=== PATIENT | female | born 1955 | race Caucasian/White ===

== ENCOUNTER → 2017-12-10 16:30 | Outpatient (CLI) | payer OTHER, SELFPAY ==
[2017-12-15 09:04] LABS: HPV Reflexed? NOT INDICATED
== END ==
PROVIDERS: Visit Provider Obstetrics & Gynecology
DX: Z12.4 Encounter for screening for malignant neoplasm of cervix (principal)
CPT/HCPCS: 88175; G0145

== ENCOUNTER → 2018-01-16 07:00 | Outpatient (CLI) | payer OTHER, SELFPAY ==
--- NOTE | 2018-01-16 06:57 | HPBI_ITS ---
MAMMOGRAPHY - BILATERAL SCREENING REASON FOR EXAM: Female, 62 years old. Routine annual screening examination. PERTINENT HISTORY: Mother with breast cancer. TECHNIQUE: Digital bilateral breast caty (3D mammographic acquisition) in the CC and MLO projections. 2-D mediolateral oblique (MLO) and craniocaudad (CC) views of both breasts were obtained. CAD: Full Field Digital Mammography with Computer Added Detection was performed. COMPARISON: Comparison is made with prior study dated January 01, 2017 and May 18, 2015. FINDINGS: Breast Composition: The breasts are heterogeneously dense, which may obscure small masses. There are no dominant masses or suspicious calcifications. No other significant abnormalities are identified. There has been no significant change since the prior study. HPBI/SCREENING MAMM (CAD), BILAT IMPRESSION: Stable bilateral screening mammogram. Yearly follow-up mammogram recommended. (A) ASSESSMENT CATEGORY: BIRADS Category 1: Negative. A letter regarding these results will be sent to the patient by the facility within 30 days. Approximately 10% of breast cancers are not detected by mammography. A normal mammogram should not delay biopsy of a clinically suspicious abnormality. [id number] Electronically Signed: Cam Cloud MD at 8:26 EST Tel [phone], Service support ,
== END ==
PROVIDERS: Family Provider Family Medicine; PCP Family Medicine; Visit Provider Obstetrics & Gynecology
DX: Z12.31 Encounter for screening mammogram for malignant neoplasm of breast (principal)
CPT/HCPCS: 77063; 77067

== ENCOUNTER 2018-10-30 11:52 | Emergency (ER) | payer OTHER, SELFPAY ==
[2018-10-30 11:53] VITALS: BP 163/81; PULSE 92; RESP 16; TEMP 36.7; BMI 30.4
--- NOTE | 2018-10-30 12:26 | EKG12_ITS ---
Test Reason : LEFT ARM HEAVINESS Blood Pressure : / mmHG Vent. Rate : 063 BPM Atrial Rate : 063 BPM P-R Int : 152 ms QRS Dur : 106 ms QT Int : 424 ms P-R-T Axes : 076 052 056 degrees QTc Int : 433 ms Normal sinus rhythm Incomplete left bundle branch block Borderline ECG Confirmed by WESTLEY ZALDIVAR, RENNY ([id number]), manuscript editor KATHY MOON ([id number]) on 11/01/2018 1:53:29 PM Referred By: ZOEY Confirmed By:RENNY CHRISTY MD
--- NOTE | 2018-10-30 12:27 | ED.DCSUM_ITS ---
- ER Visit Summary Date of Service: 10/30/18 Chief Complaint: Left arm heaviness History of Present Illness: The patient is a 63 F with left arm pain heaviness. 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 Keyboarding causes her heaviness. She never had this before. She has not had other associated symptoms like chest pain, shortness of breath, weakness, numbness, sweats, nausea, or vomiting. No history of heart disease or angina. She thinks she might have overused her arm. She hurt her knee recently and has been pulling herself up the stairs. She normally walks up 3 flights of stairs at work and does not have any chest pain or symptoms with exertion. Physical Examination: Afebrile and vital signs unremarkable except for a blood pressure of 163/81. Nontoxic and in no acute distress. Alert and oriented. Skin appears normal without diaphoresis or pallor. Heart regular. Lungs clear. Left upper extremity shows good range of motion. Good strength and sensation. Neurovascular intact distally. No laxity or deformity. Test Results: EKG, chest x-ray, labs pending Emergency Department Course and Treatment: I suspect this is myofascial pain. She is low risk for heart disease and her symptoms are very atypical. She was concerned and her coworkers were concerned that this could be an atypical cardiac presentation. I will check EKG, chest x-ray, and labs. EKG showed a left bundle branch block pattern. No sign of acute ischemia or infarction pattern. There is nothing to suggest that this is an acute ID type pattern. Chest x-ray normal. Labs normal. She has a heart score of 3, she received one-point because of her EKG and she received 2 points because of her age. Her symptoms are very unusual and atypical for ACS or angina. I do not believe she needs admission for that. I referred her to follow-up with her family doctor for outpatient follow-up. I suspect this may be just myofascial pain. She can take anti-inflammatories and rest the arm. Follow-up with primary care. Return right away for any new or worsening issues Treatment Plan: As above Disposition: Discharge Impression: 1. Left arm heaviness This note was generated with [employer] dictation software. It may contain incorrect words, spelling, and punctuation that were not noted in review of the chart prior to signing ED Disposition - Plan for ED Patient: Disposition: Home or Assisted Living Chief Complaint: Upper Extremity Injury Instructions: ED Sprain Shoulder Referrals: Marquis Villareal MD [Primary Care Provider] -
--- NOTE | 2018-10-30 12:40 | RAD_ITS ---
STUDY: X-RAY CHEST REASON FOR EXAM: Female, 63 years old. Chest heaviness and left arm heaviness. TECHNIQUE: Single AP portable view of the chest. COMPARISON: None. FINDINGS: EKG electrodes are seen. The lungs are clear and expanded. There is no demonstrated pleural abnormality. Normal size heart. Normal mediastinum and sylvia. Normal visualized pulmonary arteries. Normal visualized aortic arch and descending thoracic aorta. There are mild degenerative changes of the visualized thoracic spine. Normal visualized ribs, clavicles, and shoulders. There is no demonstrated abnormality of the visualized soft tissue structures of the upper abdomen. RAD/Chest 1 View (Portable) IMPRESSION: Normal x-ray examination of the chest. Electronically Signed: Cam Cloud MD at 12:57 EST Tel [phone], Service support ,
[2018-10-30 13:02] LABS: Absolute Lymphocyte Count 1.18 X10^3/ul (0.83-4.51); Absolute Neutrophil Count 5.6 X10^3/uL (2.0-7.7); Basophil# 0.02 X10^3/uL; Basophil% 0.3 % (0-1); Eosinophil# 0.09 X10^3/uL; Eosinophils% 1.2 % (0-5); Hematocrit 36.5 % (37-47); Hemoglobin 12.5 g/dl (12.0-15.0); Lymphocyte # 1.18 X10^3/ul (4.0); Lymphocyte % 15.9 % (19-41); Mean Corp Hgb Conc 34.2 g/gl (32-36); Mean Corpuscular Hgb 30.8 pg (27.0-32.0); Mean Corpuscular Volume 89.9 fL (81-99); Mean Platelet Vol. 11.2 fl (6.2-12.0); Monocyte# 0.52 X10^3/uL; Neutrophil % 75.3 % (47-70); POSITIVE COUNT NO; POSITIVE DIFFERENTIAL NO; POSITIVE MORPHOLOGY NO; Platelet Count 232 K/mm3 (150-450); RBC Distribution Width CV 12.5 % (11.6-14.6); RBC Distribution Width SD 40.8 fl (35.1-43.9); Red Blood Count 4.06 M/mm3 (4.2-5.4); White Blood Count 7.4 K/mm3 (4.4-11.0)
[2018-10-30 13:03] VITALS: O2SAT 100
[2018-10-30 13:18] LABS: Anion Gap 8 (5-15); BUN 13 mg/dL (7-18); BUN/Creat Ratio 21.7 RATIO (10-20); Calcium,Total 9.1 mg/dL (8.5-10.1); Chloride 102 mmol/L (98-107); EST Glomerular Filtration Rate 107 mL/min (>60); Est Glom Filt Rate - Afr Amer 129 mL/min (>60); Estimated Creatinine Clearance 77.33 ml/min; Glucose 112 mg/dL (74-106); Sodium Level 134 mmol/L (136-145)
--- NOTE | 2018-10-30 13:48 | ED.DEP ---
ED Disposition - Plan for ED Patient: Chief Complaint: Upper Extremity Injury Instructions: ED Sprain Shoulder Referrals: Marquis Villareal MD [Primary Care Provider] -
[2018-10-30 14:04] VITALS: BP 124/71; PULSE 68; RESP 16; O2SAT 99
--- OUTSIDE RECORDS SUMMARY | 2019-01-31 18:37 | XMS RPT_ITS ---
:1955 Author Organization OHIP Care Team Providers Name Role Phone Rosalinda Villareal Primary Care Unavailable Yg Esteban Attending Unavailable Janice Wilson Attending Unavailable Janice Wilson Attending Unavailable Janice Wilson Referring Unavailable Rosalinda Villareal Primary Care Unavailable ROSALINDA VILLAREAL Attending Unavailable JAE SHARIF (ARCHITECTURE CONSULTANT) Referring Unavailable RUTTI JAE (ARCHITECTURE CONSULTANT) Referring Unavailable RUTTI JAE (ARCHITECTURE CONSULTANT) Referring Unavailable RUTTI, JAE (ARCHITECTURE CONSULTANT) Referring Unavailable RUTTI, JAE (ARCHITECTURE CONSULTANT) Attending Unavailable ANTHONY SHARIFISSA (ARCHITECTURE CONSULTANT) Referring Unavailable [facility] Referring Unavailable Rosalinda Villareal MD Primary Care Unavailable PROBLEMS PROBLEMS DATE TYPE CONDITION / CODE ATTENDING STATUS SOURCE 11/14/2018 Active Abnormal NA Active [place] electrocardiogram [facility] (ECG) (EKG) / [place] R94.31(ICD-10) Repository 11/14/2018 Active Left bundle-branch NA Active [place] block, unspecified / [facility] I44.7(ICD-10) [place] Repository 11/08/2018 Active Encounter for NA Active [place] follow-up examination [facility] after completed [place] treatment for Repository conditions other than malignant neoplasm / Z09(ICD-10) 11/08/2018 Active Other symptoms and NA Active [place] signs involving the [facility] musculoskeletal system [place] / R29.898(ICD-10) Repository 11/07/2018 Active Encounter for NA Active [place] screening for lipoid [facility] disorders / [place] Z13.220(ICD-10) Repository 11/07/2018 Active Personal history of NA Active [place] other endocrine, [facility] nutritional and [place] metabolic disease / Repository Z86.39(ICD-10) 09/14/2018 Active Encounter for NA Active [place] immunization / Clinic [facility] Z23(ICD-10) [place] Repository 01/16/2018 Unknown Z12.31 - Encounter for Janice Wilson Active [place] screening mammogram [facility] for malignant neoplasm [facility] of breast / Repository Z12.31(ICD-10) 12/11/2017 Unknown Z12.4 - Encounter for Janice Wilson Active [place] screening for [facility] malignant neoplasm of Hospital cervix / Z12.4(ICD-10) Repository PROCEDURES PROCEDURES No Procedure Records FoundRESULTS RESULTS PROGRESS Observed: 11/27/2018 Status: COMPLETED Source: [place] 11:12 AM [facility] REPOSITORY HNO ID: [id number] Author: Rosalinda Villareal Service: (none) Author Type: Physician Type: Progress Notes Filed: 11/27/2018 11:36 AM Note Text: No chief complaint on file. HPI: Patient presents today for office visit for follow up. Her ekg here was read as being normal. ekg at hospital was read as an incomplete lbbb. Echo and stress are normal. Her bp has up and down at home Was ok at office here and was ok during the echo. No chest pain or shortness of breath. No edema. Since beginning of Sep. Has continued to have occasional congestion usually in the am. No heartburn. Cough seems to be better. Sometimes will get a globus sensation. Has been having increased anxiety issues. Worries a lot. No depression. Discussed medication. Using a supplement. Component Latest Ref Rng AND Units 11/07/2018 Protein, Total 6.3 - 8.0 g/dL 7.5 Albumin 3.9 - 4.9 g/dL 4.4 Calcium 8.5 - 10.2 mg/dL 9.8 Bilirubin, Total 0.2 - 1.3 mg/dL 0.4 Alkaline Phosphatase 34 - 123 U/L 47 AST 13 - 35 U/L 22 Glucose 74 - 99 mg/dL 96 BUN 7 - 21 mg/dL 20 Creatinine 0.58 - 0.96 mg/dL 0.62 Sodium 136 - 144 mmol/L 139 Potassium 3.7 - 5.1 mmol/L 4.4 Chloride 97 - 105 mmol/L 102 CO2 22 - 30 mmol/L 23 Anion Gap 9 - 18 mmol/L 14 ALT 7 - 38 U/L 12 eGFR- >60 eGFR-All Other Races . >60 WBC 3.70 - 11.00 k/uL 5.62 RBC 3.90 - 5.20 m/uL 4.25 Hemoglobin 11.5 - 15.5 g/dL 13.0 Hematocrit 36.0 - 46.0 % 39.7 MCV 80.0 - 100.0 fL 93.4 MCH 26.0 - 34.0 pG 30.6 MCHC 30.5 - 36.0 g/dL 32.7 RDW-CV 11.5 - 15.0 % 13.1 Platelet Count 150 - 400 k/uL 232 MPV 9.0 - 12.7 fL 11.6 Absolute nRBC <0.01 k/uL <0.01 Total Cholesterol, Nonfasting <200 mg/dL 237 (H) Triglycerides, Nonfasting <150 mg/dL 83 HDL Cholesterol, Nonfasting >39 mg/dL 70 LDL Cholesterol, Nonfasting <100 mg/dL 150 (H) Non HDL Cholesterol, Nonfasting <130 mg/dL 167 (H) VLDL Cholesterol, Nonfasting <30 mg/dL 17 Total Chol/HDL Ratio, Nonfasting <5.10 mg/dL 3.39 LDL/HDL Ratio, Nonfasting <2.54 mg/dL 2.14 TSH 0.400 - 5.500 uU/mL 1.160 MEDICATIONS: Current Outpatient Prescriptions: perflutren lipid microspheres (DEFINITY) 1.1 mg/mL injection (to be provided with echo procedure) Inject 1.3 mL intravenously as directed. No current facility-administered medications for this visit. ALLERGIES: ALLERGIES Allergen Reactions - Environmental [Othe* - Pet Dander [Other] PAST MEDICAL HISTORY Diagnosis Date - Allergic rhinitis, cause unspecified testing 1977 inj's x 2-3 yrs. nearly asympt lately - History of periodontal disease PAST SURGICAL HISTORY Procedure Laterality Date - COLONOSCOP W/ OR W/O [facility] SPEC 06/07/2017 Colonoscopy - DANDC, DIAG AND/OR THERAPEUTIC Dilation AND curettage - PAST SURGICAL HISTORY OF c/s x 2 - PAST SURGICAL HISTORY OF 08/2016 left trigger thumb release: Dr. 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 REVIEW OF SYSTEMS All other reviewed and negative other than HPI. VITALS: BP 148/82 Pulse 76 Resp 16 Wt 77.1 kg (170 lb) BMI 31.09 kg/m? Last 4 Encounter Wt Readings: Date: Wt: 11/27/2018 77.1 kg (170 lb) 11/07/2018 77.6 kg (171 lb) 09/20/2018 77.6 kg (171 lb) 05/28/2017 72.6 kg (160 lb 0.9 oz) PHYSICAL EXAMINATION: General appearance: Well appearing, alert, in no acute distress, well-hydrated, well nourished. Skin: Skin color, texture, turgor normal, no suspicious rashes or lesions Head: Normocephalic, no masses, lesions, tenderness or abnormalities Neck: Supple, no adenopathy; thyroid symmetric, normal size, no bruits Lungs: lungs clear to auscultation. No wheezing, rhonchi, rales Heart: RRR without murmur, gallop, or rubs. No ectopy Abdomen: Normal abdominal exam, Abdomen soft, non-tender. Bowel sounds normal. No masses, organomegaly Extremities: No deformities, edema, skin discoloration, clubbing or cyanosis. Good capillary refill. Musculoskeletal: No joint swelling, deformity, or tenderness PSYCH:Affect normal. Normal speech. Normal eye contact ASSESSMENT/PLAN: 1. Thyroid nodule - ICD9: 241.0, ICD10: E04.1 (primary diagnosis) - recheck. - US THYROID/PARATHYROID 2. LBBB (left bundle branch block) - ICD9: 426.3, ICD10: I44.7 - appears ok, will get actual hard copy of ekg 3. Globus sensation - ICD9: 306.4, ICD10: F45.8 - Discussed risks and benefits of new medication with the patient. Advised them to call if any side effects or questions. - OMEPRAZOLE 20 MG CAPSULE,DELAYED RELEASE 4. Elevated blood pressure reading without diagnosis of hypertension - ICD9: 796.2, ICD10: R03.0 - Goal of BP <130/80 Rosalinda Villareal MD RTO in one month and prn. CNOV Observed: 11/27/2018 Status: COMPLETED Source: [place] 10:40 AM [facility] REPOSITORY [facility] TAYLOR LYONS ([id number]) 1955 F Date Time Provider Department 11/27/18 10:40 AM ROSALINDA VILLAREAL [facility] During your visit today, we recorded the following information about you: Pulse Respiration Blood pressure Weight 76/minute 16/minute 136/80 77.1 kg Nadya Baron Alena 11/27/2018 11:20 AM Signed HTN: Monitors bp at home: has been running high. Chest pain: No. Dyspnea: No. Edema: No. Palpitations: No. Syncope: No. Headache: No. Dizziness: No. Patient feels like she has congestion when she swallows. Rosalinda Villareal MD 11/27/2018 11:36 AM Signed No chief complaint on file. HPI: Patient presents today for office visit for follow up. Her ekg here was read as being normal. ekg at hospital was read as an incomplete lbbb. Echo and stress are normal. Her bp has up and down at home Was ok at office here and was ok during the echo. No chest pain or shortness of breath. No edema. Since beginning of Nov. Has continued to have occasional congestion usually in the am. No heartburn. Cough seems to be better. Sometimes will get a globus sensation. Has been having increased anxiety issues. Worries a lot. No depression. Discussed medication. Using a supplement. Component Latest Ref Rng AND Units 11/07/2018 Protein, Total 6.3 - 8.0 g/dL 7.5 Albumin 3.9 - 4.9 g/dL 4.4 Calcium 8.5 - 10.2 mg/dL 9.8 Bilirubin, Total 0.2 - 1.3 mg/dL 0.4 Alkaline Phosphatase 34 - 123 U/L 47 AST 13 - 35 U/L 22 Glucose 74 - 99 mg/dL 96 BUN 7 - 21 mg/dL 20 Creatinine 0.58 - 0.96 mg/dL 0.62 Sodium 136 - 144 mmol/L 139 Potassium 3.7 - 5.1 mmol/L 4.4 Chloride 97 - 105 mmol/L 102 CO2 22 - 30 mmol/L 23 Anion Gap 9 - 18 mmol/L 14 ALT 7 - 38 U/L 12 eGFR- >60 eGFR-All Other Races . >60 WBC 3.70 - 11.00 k/uL 5.62 RBC 3.90 - 5.20 m/uL 4.25 Hemoglobin 11.5 - 15.5 g/dL 13.0 Hematocrit 36.0 - 46.0 % 39.7 MCV 80.0 - 100.0 fL 93.4 MCH 26.0 - 34.0 pG 30.6 MCHC 30.5 - 36.0 g/dL 32.7 RDW-CV 11.5 - 15.0 % 13.1 Platelet Count 150 - 400 k/uL 232 MPV 9.0 - 12.7 fL 11.6 Absolute nRBC <0.01 k/uL <0.01 Total Cholesterol, Nonfasting <200 mg/dL 237 (H) Triglycerides, Nonfasting <150 mg/dL 83 HDL Cholesterol, Nonfasting >39 mg/dL 70 LDL Cholesterol, Nonfasting <100 mg/dL 150 (H) Non HDL Cholesterol, Nonfasting <130 mg/dL 167 (H) VLDL Cholesterol, Nonfasting <30 mg/dL 17 Total Chol/HDL Ratio, Nonfasting <5.10 mg/dL 3.39 LDL/HDL Ratio, Nonfasting <2.54 mg/dL 2.14 TSH 0.400 - 5.500 uU/mL 1.160 MEDICATIONS: Current Outpatient Prescriptions: perflutren lipid microspheres (DEFINITY) 1.1 mg/mL injection (to be provided with echo procedure) Inject 1.3 mL intravenously as directed. No current facility-administered medications for this visit. ALLERGIES: ALLERGIES Allergen Reactions - Environmental [Othe* - Pet Dander [Other] PAST MEDICAL HISTORY Diagnosis Date - Allergic rhinitis, cause unspecified testing 1977 inj's x 2-3 yrs. nearly asympt lately - History of periodontal disease PAST SURGICAL HISTORY Procedure Laterality Date - [facility]/07/2017 Colonoscopy - DANDC, DIAG AND/OR THERAPEUTIC Dilation AND curettage - PAST SURGICAL HISTORY OF c/s x 2 - PAST SURGICAL HISTORY OF 08/2016 left trigger thumb release: Dr. 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 REVIEW OF SYSTEMS All other reviewed and negative other than HPI. VITALS: BP 148/82 Pulse 76 Resp 16 Wt 77.1 kg (170 lb) BMI 31.09 kg/m? Last 4 Encounter Wt Readings: Date: Wt: 11/27/2018 77.1 kg (170 lb) 11/07/2018 77.6 kg (171 lb) 09/20/2018 77.6 kg (171 lb) 05/28/2017 72.6 kg (160 lb 0.9 oz) PHYSICAL EXAMINATION: General appearance: Well appearing, alert, in no acute distress, well-hydrated, well nourished. Skin: Skin color, texture, turgor normal, no suspicious rashes or lesions Head: Normocephalic, no masses, lesions, tenderness or abnormalities Neck: Supple, no adenopathy; thyroid symmetric, normal size, no bruits Lungs: lungs clear to auscultation. No wheezing, rhonchi, rales Heart: RRR without murmur, gallop, or rubs. No ectopy Abdomen: Normal abdominal exam, Abdomen soft, non-tender. Bowel sounds normal. No masses, organomegaly Extremities: No deformities, edema, skin discoloration, clubbing or cyanosis. Good capillary refill. Musculoskeletal: No joint swelling, deformity, or tenderness PSYCH:Affect normal. Normal speech. Normal eye contact ASSESSMENT/PLAN: 1. Thyroid nodule - ICD9: 241.0, ICD10: E04.1 (primary diagnosis) - recheck. - US THYROID/PARATHYROID 2. LBBB (left bundle branch block) - ICD9: 426.3, ICD10: I44.7 - appears ok, will get actual hard copy of ekg 3. Globus sensation - ICD9: 306.4, ICD10: F45.8 - Discussed risks and benefits of new medication with the patient. Advised them to call if any side effects or questions. - OMEPRAZOLE 20 MG CAPSULE,DELAYED RELEASE 4. Elevated blood pressure reading without diagnosis of hypertension - ICD9: 796.2, ICD10: R03.0 - Goal of BP <130/80 Rosalinda Villareal MD RTO in one month and prn. Referring Provider: SELF [[id number]] Allergies As of Date: 11/27/2018 Noted Allergy Reaction environmental [Other] 12/08/2006 pet dander [Other] 12/08/2006 Date Reviewed: 11/27/2018 Reviewed by: Nadya Baron Ma - Fully Assessed Primary Visit Diagnosis:Thyroid nodule [E04.1] Other Visit Diagnoses:LBBB (left bundle branch block) [I44.7] Globus sensation [F45.8] Elevated blood pressure reading without diagnosis of hypertension [R03.0] Order(s):US THYROID/PARATHYROID [[id number]] Order #: [id number] FUTURE omeprazole (PRILOSEC) 20 mg capsuleTake 1 capsule by mouth daily before breakfast. 1/2 hr before meal.Disp: 30 capsuleRfl: 1 Prescriptions as of 11/27/2018 Sig: OMEPRAZOLE 20 MG CAPSULE,LEATHA* Take 1 capsule by mouth daily* Problem List As Of Date 11/27/2018 Noted Resolved ALLERGIC RHINITIS NOS [J30.9] INVALID FOR* ABSENCE OF MENSTRUATION [N91.2] INVALID FOR*12/08/2006 OSTEOARTHROS NOS-UNSPEC [M19.90] INVALID FOR* FAMILY HX BREAST MALIG [Z80.3] INVALID FOR* More... ASYMPTOMATIC POSTMENOPAUSAL STATUS [Z78.0] INVALID FOR* CARBUNCLE OF TRUNK [L02.229] INVALID FOR* Obesity, Class II, BMI 35-39.9 [E66.9] INVALID FOR* Lichen sclerosus et atrophicus [L90.0] INVALID FOR* More... Thyroid nodule [E04.1] INVALID FOR* More... LBBB (left bundle branch block) [I44.7] INVALID FOR* More... Visit Notes: >> Nadya Baron Ma SunNov 27, 2018 11:06 AM Status: Signed HTN: Monitors bp at home: has been running high. Chest pain: No. Dyspnea: No. Edema: No. Palpitations: No. Syncope: No. Headache: No. Dizziness: No. Patient feels like she has congestion when she swallows. Prescriptions ordered this encounter Disp Refills Start End OMEPRAZOLE 20 MG CAPSULE,DELAYED REL* 30 c* 1 11/27/2018 Route: ORAL Sig: Take 1 capsule by mouth daily before breakfast. 1/2 hr before meal. Medications Discontinued During This Encounter perflutren lipid microspheres (DEFIN* 1.3 * 0 11/07/2018 11/27/2018 Class: In Office Route: INTRAVENOUS Sig: Inject 1.3 mL intravenously as directed. Disc: Reason for discontinue is not on file. Disposition: Return in about 4 weeks (around 12/25/2018). Follow-up and Disposition History Recorded Encounter Status:Closed by ROSALINDA VILLAREAL MD on 11/27/18 [facility] Observed: 11/14/2018 Status: F Source: [place] STRESS/EXERCISE 10:41 AM [facility] REPOSITORY * * *Final Report* * * DATE OF EXAM: Nov 14 2018 10:41AM [place] [address] - [facility] STRESS/EXERCISE / PROCEDURE REASON: Abnormal electrocardiogram [R94.31];New onset left bundle branch block (LBBB) [I * * * * Physician Interpretation * * * * PATIENT: Name: TAYLOR LYONS Age: 63 years Gender: F CONCLUSIONS: 1. SPECT Perfusion Study: Normal. 2. There is no scintigraphic evidence for inducible ischemia. 3. No evidence of scarred myocardium. 4. Average functional capacity for age and gender. 5. Left ventricle is normal in size. The left ventricle systolic function is normal. 6. Right ventricle is normal in size. The right ventricle systolic function is hyperdynamic. 7. This is a low risk scan. Gated Stress FBP LVEF % 79 Prior Study Comparison No prior nuclear cardiology exam available for comparison. Nuclear Med Report:1-Day [id number] Exercise Stress Gated SPECT: Myocardial perfusion imaging was performed at rest 30 to 60 minutes following the IV injection of Tc-99m tetrofosmin. One minute prior to peak exercise, the patient was injected IV with Tc-99m tetrofosmin. Gated post stress tomographic imaging was performed 10 to 20 minutes later. See administered doses below. [facility] Date of service: 11/14/2018 7:02:21 AM Ordering Physician: Requesting Physician: JAE SHARIF Indication: Abnormal Baseline ECG, CP - ECG interpretable AND able to exercise with interm/high pre-test probability and Assessment for suspected CAD. Interpreting physician: Kelechi Jamil MD Patient History: History of hypertension and dyslipidemia. Height: 157.48 cm BSA: 1.84 m? Weight: 77.57 kg BMI: 31.3 kg/m? Exam Type: Rest Stress Radiopharm: Tc-99m Tetrofosmin Tc-99m Tetrofosmin Dosage(mCi): 13.1 29.8 Stress Agent: Treadmill Resting Heart Rate: 61 bpm Resting Blood Press: 138/68 mmHg Image Quality The overall study imaging quality was deemed to be good. FINDINGS: Left Ventricle Wall Motion: Stress IR:3D - All scored segments are normal. Rest IR:3D - Gated Stress FBP - Reversibility - Stress IR:3D Stress IR:3D Gated Stress FBP LVEF: 79 % ED Volume: 72 ml ES Volume: 15 ml TID: 0.76 Perfusion Findings Stress IR:3D - Summed Score=0 All scored segments reflect normal perfusion. Rest IR:3D - Summed Score=0 All scored segments reflect normal perfusion. Stress IR:3D Rest IR:3D Summed Score=0 Summed Score=0 LEFT VENTRICLE The left ventricle is normal in size. Left ventricular systolic function is normal. Right Ventricle The right ventricle is normal in size. Right ventricle systolic function is hyperdynamic. Stress Test Findings: There is no scintigraphic evidence for inducible ischemia. There is no evidence of scarring. The stress test was terminated due to the following: Fatigue. Peak HR 160 bpm. (103 % MPHR) Peak BP 220 mmHg/[address] segment response. Stress complications: none. The left ventricular cavity size is unchanged with stress. Final Corporate Receptionist: LUCAS Transcribe Date/Time: Nov 14 2018 7:02A Dictated by : KELECHI JAMIL MD This examination was interpreted and the report reviewed and electronically signed by: KELECHI JAMIL MD on Nov 14 2018 11:06AM EST [id number] Observed: 11/14/2018 Status: COMPLETED Source: [place] 10:00 AM [facility] REPOSITORY HNO ID: [id number] Author: Gopal Espino (Tami) Ron Service: (none) Author Type: Steel Tester Type: Progress Notes Filed: 11/14/2018 10:00 AM Note Text: Preliminary report complete; results under imaging tab. T. TAMI Díaz PROGRESS Observed: 11/14/2018 Status: COMPLETED Source: [place] 9:45 AM [facility] REPOSITORY HNO ID: [id number] Author: Sugar James Service: (none) Author Type: (none) Type: Progress Notes Filed: 11/14/2018 9:48 AM Note Text: RADIOLOGY SERVICE PROGRESS NOTE SERVICE DATE: 11/14/2018 SERVICE TIME: 9:45 AM PATIENT IDENTITY VERIFICATION COMPLETED USING TWO (2) METHODS: Patient confirmed name and Date of verbally. PATIENT GENDER DATA: .female : No ALLERGIES: Reviewed and unchanged MEDICATIONS REVIEWED: Yes PATIENT RELEVANT IMPLANT DATA REVIEWED: Not Applicable CREATININE: Creatinine Date Value Ref Range Status 11/07/2018 0.62 0.58 - 0.96 mg/dL Final 05/23/2017 0.61 0.58 - 0.96 mg/dL Final 02/14/2014 0.54 (L) 0.70 - 1.40 mg/dL Final eGFR-All Other Races Date Value Ref Range Status 11/07/2018 >60 . Final Comment: eGFR (Estimated GFR) Units of measure: mL/min/1.73 meters squared eGFR is derived from the reexpressed MDRD Study equation using the following parameters: serum creatinine, age, gender and race. The creatinine assay has been calibrated to be traceable to IDMS. An eGFR <60 mL/min/1.73m2 for >3 months is consistent with chronic kidney disease. Refer to KDOQI guidelines for clinical interpretation. In patients with unstable renal function, e.g. those with acute kidney injury, the eGFR may not accurately reflect actual GFR. eGFR- Date Value Ref Range Status 11/07/2018 >60 Final P.O.C.T. RESULTS: N/A November 14, [address] PERFORMED: No IV SITE: Ambulatory: A peripheral IV was started in the Right antecubital site with a Angio cath: 22 gauge. POST EXAM PIV STATUS: Discontinued PROCEDURE TYPE: [facility] Stress: 13.1mCi Xe60j-Wvmayso was administered IV for Rest Imaging at 08:00 by PERORA. 29.8 mCi Tc99m- Myoview was administered IV for Stress Imaging at 09:46 by PERORA. ADMINISTRATION TIME: PATIENT DISCHARGED TO: Ambulatory patient, left [facility] department area. A Diagnostic radioactive procedure has taken place, with no further precautions necessary other than routine body substance precautions. More information regarding radiation safety can be found using this link: [email or web address] SIGNATURE: PERORA PATIENT NAME: Taylor Lyons DATE: November 14, 2018 TIME: 9:45 AM PAGER/CONTACT #: CAROLYN Observed: 11/14/2018 Status: COMPLETED Source: [place] 9:00 AM [facility] REPOSITORY Nurse Visit ([facility]) TAYLOR LYONS ([id number]) 1955 F Date Time Provider Department 11/14/18 9:00 AM NURSE CARD ADMIN [facility] CAWSTR During your visit today, we recorded the following information about you: TAMI Black 11/14/2018 10:00 AM Signed Preliminary report complete; results under imaging tab. TAMI Black Referring Provider: JAE SHARIF ([facility]) [[id number]] Allergies As of Date: 11/14/2018 Noted Allergy Reaction environmental [Other] 12/08/2006 pet dander [Other] 12/08/2006 Date Reviewed: 11/14/2018 Reviewed by: Sugar James - Partially Assessed Visit Diagnosis:Abnormal electrocardiogram [R94.31] Order(s):[facility] CARDIAC PERF STRESS/PHARM [[id number]] Order #: [id number] Prescriptions as of 11/14/2018 Sig: PERFLUTREN LIPID MICROSPHERES* Inject 1.3 mL intravenously a* Problem List As Of Date 11/14/2018 Noted Resolved ALLERGIC RHINITIS NOS [J30.9] INVALID FOR* ABSENCE OF MENSTRUATION [N91.2] INVALID FOR*12/08/2006 OSTEOARTHROS NOS-UNSPEC [M19.90] INVALID FOR* FAMILY HX BREAST MALIG [Z80.3] INVALID FOR* More... ASYMPTOMATIC POSTMENOPAUSAL STATUS [Z78.0] INVALID FOR* CARBUNCLE OF TRUNK [L02.229] INVALID FOR* Obesity, Class II, BMI 35-39.9 [E66.9] INVALID FOR* Lichen sclerosus et atrophicus [L90.0] INVALID FOR* More... Thyroid nodule [E04.1] INVALID FOR* More... Encounter Status:Closed by Gopal ANG on 11/14/18 CBC Collected: 11/07/2018 Status: F Source: [place] 8:54 AM [facility] REPOSITORY TYPE CODE TESTS RESULT OUT OF REFERENCE UNITS RANGE LAB WBC 3.70-11.00 k/uL WBC 5.62 LAB RBC 3.90-5.20 m/uL RBC 4.25 LAB HGB 11.5-15.5 g/dL Hemoglobin 13.0 LAB HCT 36.0-46.0 % Hematocrit 39.7 LAB MCV 80.0-100.0 fL MCV 93.4 LAB MCH 26.0-34.0 pG MCH 30.6 LAB MCHC 30.5-36.0 g/dL MCHC 32.7 LAB RDWCV 11.5-15.0 % RDW-CV 13.1 LAB PLTCT 150-400 k/uL Platelet Count 232 LAB MPV 9.0-12.7 fL MPV 11.6 LAB ABSNUC <0.01 k/uL Absolute nRBC <0.01 Performed By: #### CBC, CMP, LIPNF, TSH #### [facility] [address] [place] [id number] COMP METABOLIC PANEL Collected: 11/07/2018 Status: F Source: [place] 8:54 AM [facility] REPOSITORY TYPE CODE TESTS RESULT OUT OF REFERENCE UNITS RANGE LAB TP 6.3-8.0 g/dL Protein, Total 7.5 LAB ALB 3.9-4.9 g/dL Albumin 4.4 LAB CA 8.5-10.2 mg/dL Calcium, Total 9.8 LAB TBIL 0.2-1.3 mg/dL Bilirubin, Total 0.4 LAB ALKP 34-123 U/L Alkaline Phosphatase 47 LAB AST 13-35 U/L AST 22 LAB GLU 74-99 mg/dL Glucose 96 Result Comment: The [place] Diabetes Association (ADA) provides guidance for cutoff values for fasting glucose and random glucose. The ADA defines fasting as no caloric intake for at least 8 hours. Fas ting plasma glucose results between 100 to 125 mg/dL indicate increased risk for diabetes (prediabetes). Fasting plasma glucose results greater than or equal to 126 mg/dL meet the criteria for diagnosis of diabetes. In the absence of unequivocal hyperglycemia, results should be confirmed by repeat testing. In a patient with classic symptoms of hyperglycemia or hyperglycemic crisis, random plasma glucose results greater than or equal to 200 mg/dL meet the criteria for diagnosis of diabetes. Reference: Standards of Medical Care in Diabetes 2016, [place] Diabetes Association. Diabetes Care. 2016.39(Suppl 1). LAB BUN 7-21 mg/dL BUN 20 LAB CRET 0.58-0.96 mg/dL Creatinine 0.62 LAB NA 136-144 mmol/L Sodium 139 LAB K 3.7-5.1 mmol/L Potassium 4.4 LAB CL 97-105 mmol/L Chloride 102 LAB CO2 22-30 mmol/L CO2 23 LAB AGAP 9-18 mmol/L Anion Gap 14 LAB ALT 7-38 U/L ALT 12 LAB GFRAA eGFR- Amer. >60 LAB GFRNAA . eGFR-All Other Races >60 Result Comment: eGFR (Estimated GFR) Units of measure: mL/min/1.73 meters squared eGFR is derived from the reexpressed MDRD Study equation using the following parameters: serum creatinine, age, gender and race. The creatinine assay has been calibrated to be traceable to IDMS. An eGFR <60 mL/min/1.73m2 for >3 months is consistent with chronic kidney disease. Refer to KDOQI guidelines for clinical interpretation. In patients with unstable renal function, e.g. those with acute kidney injury, the eGFR may not accurately reflect actual GFR. Performed By: #### CBC, CMP, LIPNF, TSH #### [facility] [address] [place], [place] [address] LIPID PANEL, NONFAST Collected: 11/07/2018 Status: F Source: [place] 8:54 AM [facility] REPOSITORY TYPE CODE TESTS RESULT OUT OF REFERENCE UNITS RANGE LAB CHOLNF <200 mg/dL Total High Cholesterol NF 237 Result Comment: <200 mg/dL, Desirable 200-239 mg/dL, Borderline high >239 mg/dL, High LAB TRIGNF <150 mg/dL Triglycerides, NF 83 Result Comment: <150 mg/dL, Normal 150-199 mg/dL, Borderline high 200-499 mg/dL, High >499 mg/dL, Very high LAB HDLNF >39 mg/dL HDL Cholesterol, NF 70 Result Comment: 40-59 mg/dL, Acceptable >59 mg/dL, High: Negative risk factor for coronary heart disease <40 mg/dL, Low: Positive risk factor for coronary heart disease LAB LDLNF <100 mg/dL LDL Cholesterol, High NF 150 Result Comment: <100 mg/dL, Optimal 100-129 mg/dL, Near optimal/above optimal 130-159 mg/dL, Borderline high 160-189 mg/dL, High >189 mg/dL, Very high Secondary prevention optimal LDL Cholesterol levels are recommended to be < 70 mg/dL LAB NOHDLN <130 mg/dL High Non HDL Chol, 167 NF Result Comment: <130 mg/dL, Optimal 130-159 mg/dL, Near optimal/above optimal 160-189 mg/dL, Borderline high 190-219 mg/dL, High >219 mg/dL, Very high Secondary prevention optimal non HDL Cholesterol levels are recommended to be < 100 mg/dL LAB VLDLNF <30 mg/dL VLDL Cholesterol, NF 17 LAB TCHDLN <5.10 mg/dL T Chol/HDL Ratio NF 3.39 LAB LDLHDN <2.54 mg/dL LDL/HDL Ratio, NF 2.14 Result Comment: Reference: 1. National Cholesterol Education Program ATP III Guideline At-A-Glance Quick Desk Reference: National Heart, Lung, and Blood Alder. National Institutes of Health. 2001: NIH Publication No. 01-3305. 2. An International Atherosclerosis Society position paper: global recommendations for the management of dyslipidemia: executive summary, Atherosclerosis. 2014: 232(2):410-413. Performed By: #### CBC, CMP, LIPNF, TSH #### [facility] [address] [id number] TSH Collected: 11/07/2018 Status: F Source: [place] 8:54 AM [facility] REPOSITORY TYPE CODE TESTS RESULT OUT OF RANGE REFERENCE UNITS LAB TSH 0.400-5.500 uU/mL TSH 1.160 Performed By: #### CBC, CMP, LIPNF, TSH #### [facility] [address] [address] PROGRESS Observed: 11/07/2018 Status: COMPLETED Source: [place] 8:32 AM [facility] REPOSITORY HNO ID: [id number] Author: Jae (Edmond) Justin Service: (none) Author Type: Nurse Practitioner Type: Progress Notes Filed: 11/07/2018 8:47 AM Note Text: 11/07/2018 Patient presents with: ED Follow-up: left arm pain SUBJECTIVE: This is a 63 year old that is here today for ER follow up from [facility] 10/30 for left arm heaviness. She states that she thought that it was due to using the arm more when she was going up and down the stairs at work because she duarte been having knee pain and recently has a steroid injection. She states that her co-workers made her nervous, so she went in. She had EKG that showed a LBBB. Normal CXR. Na low at 134. BP 163/81. She states that her arm pain has resolved. She is now very concerned about the EKG. She states that she may have had an EKG several years ago by Dr. Cisneros, but was told that it was normal. No EKG in this system to compare. She states that she avoids coming into the office for reasons like this, she feels that she was fine, but now she is stressed out. She denies any CP, chest heaviness, SOB, lightheadedness, dizziness, vision changes, orthopnea, edema, palpitations. She states that she does not feel like her BP was ever as high as it was in the ER, but she was stressed about what she could be told and she wants to stay healthy because her child is expecting twins next month. She states that overall she feels that she eats well. She has not been able to exercise due to the knee pain, but she does walk up and down 3 flights of stairs several times a day at work. She is not taking any medications regularly. PAST MEDICAL HISTORY Diagnosis Date - Allergic rhinitis, cause unspecified testing 1977 inj's x 2-3 yrs. nearly asympt lately - History of periodontal disease ALLERGIES Environmental [Other]; Pet Dander [Other] MEDICATIONS Current Outpatient Prescriptions: perflutren lipid microspheres (DEFINITY) 1.1 mg/mL injection (to be provided with echo procedure) Inject 1.3 mL intravenously as directed. No current facility-administered medications for this visit. Medications and allergies reviewed by this provider. 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 . Vital signs reviewed by this provider. PHYSICAL EXAMINATION: General appearance: Well appearing, alert, in no acute distress, well-hydrated, well nourished. Skin: Skin color, texture, turgor normal, no suspicious rashes or lesions Lungs: lungs clear to auscultation. No wheezing, rhonchi, rales Heart: RRR without murmur, gallop, or rubs. No ectopy, No carotid bruits Extremities: No deformities, edema, skin discoloration, clubbing or cyanosis. Good capillary refill. , Pulses: 2+ ASSESSMENT/PLAN: 1. New onset left bundle branch block (LBBB) - ICD9: 426.3, ICD10: I44.7 (primary diagnosis) - discussed will look into further with echo and stress test. She states that she will be able to do a treadmill test, she was overwhelmed by the idea of a nuclear stress test. - discussed and encouraged cardiac health with healthy diet and exercise - encouraged to follow up for physical, will order labs now - ECHO - PERFLUTREN LIPID MICROSPHERES 1.1 MG/ML INTRAVENOUS SUSPENSION - EXERCISE STRESS W/NUC IMAGING - NM CARDIAC PERF STRESS/EXERCISE - LIPID PANEL, NONFASTING - CBC - COMP METABOLIC PANEL - TSH BLD 2. Abnormal electrocardiogram - ICD9: 794.31, ICD10: R94.31 - see above - ECHO - PERFLUTREN LIPID MICROSPHERES 1.1 MG/ML INTRAVENOUS SUSPENSION - EXERCISE STRESS W/NUC IMAGING - NM CARDIAC PERF STRESS/EXERCISE 3. Follow up - ICD9: V67.9, ICD10: Z09 - arm heaviness resolved - see above - ECHO - PERFLUTREN LIPID MICROSPHERES 1.1 MG/ML INTRAVENOUS SUSPENSION - EXERCISE STRESS W/NUC IMAGING - NM CARDIAC PERF STRESS/EXERCISE 4. Arm heaviness - ICD9: 729.89, ICD10: R29.898 - resolved - ECHO - PERFLUTREN LIPID MICROSPHERES 1.1 MG/ML INTRAVENOUS SUSPENSION - EXERCISE STRESS W/NUC IMAGING - NM CARDIAC PERF STRESS/EXERCISE 5. Screening cholesterol level - ICD9: V77.91, ICD10: Z13.220 - LIPID PANEL, NONFASTING 6. History of thyroid nodule - ICD9: V12.29, ICD10: Z86.39 - TSH BLD Jae Sharif APRN.EDMOND ABRAMS Observed: 11/07/2018 Status: COMPLETED Source: [place] 8:00 AM [facility] REPOSITORY [facility] TAYLOR LYONS ([id number]) 1955 F Date Time Provider Department 11/07/18 8:00 AM JAE SHARIF) NICOLE During your visit today, we recorded the following information about you: Pulse Respiration Blood pressure Weight 77/minute 16/minute 122/74 77.6 kg Jae Sharif APRN.CNP 11/07/2018 8:47 AM Signed 11/07/2018 Patient presents with: ED Follow-up: left arm pain SUBJECTIVE: This is a 63 year old that is here today for ER follow up from [facility] 10/30 for left arm heaviness. She states that she thought that it was due to using the arm more when she was going up and down the stairs at work because she duarte been having knee pain and recently has a steroid injection. She states that her co-workers made her nervous, so she went in. She had EKG that showed a LBBB. Normal CXR. Na low at 134. BP 163/81. She states that her arm pain has resolved. She is now very concerned about the EKG. She states that she may have had an EKG several years ago by Dr. Cisneros, but was told that it was normal. No EKG in this system to compare. She states that she avoids coming into the office for reasons like this, she feels that she was fine, but now she is stressed out. She denies any CP, chest heaviness, SOB, lightheadedness, dizziness, vision changes, orthopnea, edema, palpitations. She states that she does not feel like her BP was ever as high as it was in the ER, but she was stressed about what she could be told and she wants to stay healthy because her child is expecting twins next month. She states that overall she feels that she eats well. She has not been able to exercise due to the knee pain, but she does walk up and down 3 flights of stairs several times a day at work. She is not taking any medications regularly. PAST MEDICAL HISTORY Diagnosis Date - Allergic rhinitis, cause unspecified testing 1977 inj's x 2-3 yrs. nearly asympt lately - History of periodontal disease ALLERGIES Environmental [Other]; Pet Dander [Other] MEDICATIONS Current Outpatient Prescriptions: perflutren lipid microspheres (DEFINITY) 1.1 mg/mL injection (to be provided with echo procedure) Inject 1.3 mL intravenously as directed. No current facility-administered medications for this visit. Medications and allergies reviewed by this provider. 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 . Vital signs reviewed by this provider. PHYSICAL EXAMINATION: General appearance: Well appearing, alert, in no acute distress, well-hydrated, well nourished. Skin: Skin color, texture, turgor normal, no suspicious rashes or lesions Lungs: lungs clear to auscultation. No wheezing, rhonchi, rales Heart: RRR without murmur, gallop, or rubs. No ectopy, No carotid bruits Extremities: No deformities, edema, skin discoloration, clubbing or cyanosis. Good capillary refill. , Pulses: 2+ ASSESSMENT/PLAN: 1. New onset left bundle branch block (LBBB) - ICD9: 426.3, ICD10: I44.7 (primary diagnosis) - discussed will look into further with echo and stress test. She states that she will be able to do a treadmill test, she was overwhelmed by the idea of a nuclear stress test. - discussed and encouraged cardiac health with healthy diet and exercise - encouraged to follow up for physical, will order labs now - ECHO - PERFLUTREN LIPID MICROSPHERES 1.1 MG/ML INTRAVENOUS SUSPENSION - EXERCISE STRESS W/NUC IMAGING - NM CARDIAC PERF STRESS/EXERCISE - LIPID PANEL, NONFASTING - CBC - COMP METABOLIC PANEL - TSH BLD 2. Abnormal electrocardiogram - ICD9: 794.31, ICD10: R94.31 - see above - ECHO - PERFLUTREN LIPID MICROSPHERES 1.1 MG/ML INTRAVENOUS SUSPENSION - EXERCISE STRESS W/NUC IMAGING - NM CARDIAC PERF STRESS/EXERCISE 3. Follow up - ICD9: V67.9, ICD10: Z09 - arm heaviness resolved - see above - ECHO - PERFLUTREN LIPID MICROSPHERES 1.1 MG/ML INTRAVENOUS SUSPENSION - EXERCISE STRESS W/NUC IMAGING - NM CARDIAC PERF STRESS/EXERCISE 4. Arm heaviness - ICD9: 729.89, ICD10: R29.898 - resolved - ECHO - PERFLUTREN LIPID MICROSPHERES 1.1 MG/ML INTRAVENOUS SUSPENSION - EXERCISE STRESS W/NUC IMAGING - NM CARDIAC PERF STRESS/EXERCISE 5. Screening cholesterol level - ICD9: V77.91, ICD10: Z13.220 - LIPID PANEL, NONFASTING 6. History of thyroid nodule - ICD9: V12.29, ICD10: Z86.39 - TSH BLD Jae Sharif APRN.ARCHITECTURE CONSULTANT Referring Provider: SELF [200] Allergies As of Date: 11/07/2018 Noted Allergy Reaction environmental [Other] 12/08/2006 pet dander [Other] 12/08/2006 Date Reviewed: 11/07/2018 Reviewed by: Rebeka Kenyon) ALENA Desai - Fully Assessed Reason for Visit: ED Follow-up [821] Cmt: left arm pain Reason For Visit History Recorded Primary Visit Diagnosis:New onset left bundle branch block (LBBB) [I44.7] Other Visit Diagnoses:Abnormal electrocardiogram [R94.31] Follow up [Z09] Arm heaviness [R29.898] Screening cholesterol level [Z13.220] History of thyroid nodule [Z86.39] Order(s):ECHO [135262] Order #: [id number]: 1 FUTURE perflutren lipid microspheres (DEFINITY) 1.1 mg/mL injection (to be provided with echo procedure)Inject 1.3 mL intravenously as directed.Disp: 1.3 mLRfl: 0 EXERCISE STRESS W/NUC IMAGING [9441591] Order #: [id number]: 1 NM CARDIAC PERF STRESS/EXERCISE [7835170] Order #: [id number] LIPID PANEL, NONFASTING [SQLIPNF] Order #: [id number] FUTURE CBC [SQCBC] Order #: [id number] FUTURE COMP METABOLIC PANEL [SQCMP] Order #: [id number] FUTURE TSH BLD [SQTSH] Order #: [id number] FUTURE Prescriptions as of 11/07/2018 Sig: PERFLUTREN LIPID MICROSPHERES* Inject 1.3 mL intravenously a* Problem List As Of Date 11/07/2018 Noted Resolved ALLERGIC RHINITIS NOS [J30.9] INVALID FOR* ABSENCE OF MENSTRUATION [N91.2] INVALID FOR*12/08/2006 OSTEOARTHROS NOS-UNSPEC [M19.90] INVALID FOR* FAMILY HX BREAST MALIG [Z80.3] INVALID FOR* More... ASYMPTOMATIC POSTMENOPAUSAL STATUS [Z78.0] INVALID FOR* CARBUNCLE OF TRUNK [L02.229] INVALID FOR* Obesity, Class II, BMI 35-39.9 [E66.9] INVALID FOR* Lichen sclerosus et atrophicus [L90.0] INVALID FOR* More... Thyroid nodule [E04.1] INVALID FOR* More... Prescriptions ordered this encounter Disp Refills Start End PERFLUTREN LIPID MICROSPHERES 1.1 MG* 1.3 * 0 11/07/2018 11/07/2019 Class: In Office Route: INTRAVENOUS Sig: Inject 1.3 mL intravenously as directed. Disposition: Return for Need physical with PCP or teamlet. Follow-up and Disposition History Recorded Encounter Status:Closed by JAE SHARIF on 11/07/18 12 LEAD ELECTROCARDIOGRAM Observed: 11/01/2018 Status: F Source: [place] 1:53 PM [facility] REPOSITORY [facility] Cardiovascular Services [address] [place] [id number] 12 Lead EKG 10/30/18 1237 MR#: [id number] Acct: [id number] Name: TAYLOR LYONS Rep #: [id number] : 1955 63 From: Chencho Machado MD Attending Dr: Status: DEP ER Ordering Dr: Yg Esteban MD Date: 10/30/18 Location: ED Sex: F C Admitted: Test Reason : LEFT ARM HEAVINESS Blood Pressure : / mmHG Vent. Rate : 063 BPM Atrial Rate : 063 BPM P-R Int : 152 ms QRS Dur : 106 ms QT Int : 424 ms P-R-T Axes : 076 052 056 degrees QTc Int : 433 ms Normal sinus rhythm Incomplete left bundle branch block Borderline ECG Confirmed by CHENCHO MACHADO MD ([id number]), greeting card editor KATHY MOON ([id number]) on 11/01/2018 1:53:29 PM Referred By: ZOEY Confirmed By:CHENCHO MACHADO MD 11/01/18 1353 Date Chencho Machado MD CC: Yg Esteban MD; Rosalinda Villareal MD Signed EMERGENCY DEPARTMENT Observed: 10/30/2018 Status: F Source: [place] SUMMARY 3:42 PM [facility] REPOSITORY [facility] Medical Records Department [address] [place] [address] Emergency Department Summary 10/30/18 1227 MR#: [id number] Acct: [id number] Name: TAYLOR LYONS Rep #: [id number] : 1955 63 From: Yg Esteban MD PCP: Rosalinda Villareal MD Status: DEP ER - ER Visit Summary Date of Service: 10/30/18 Chief Complaint: Left arm heaviness History of Present Illness: The patient is a 63 F with left arm pain heaviness. 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 Keyboarding causes her heaviness. She never had this before. She has not had other associated symptoms like chest pain, shortness of breath, weakness, numbness, sweats, nausea, or vomiting. No history of heart disease or angina. She thinks she might have overused her arm. She hurt her knee recently and has been pulling herself up the stairs. She normally walks up 3 flights of stairs at work and does not have any chest pain or symptoms with exertion. Physical Examination: Afebrile and vital signs unremarkable except for a blood pressure of 163/81. Nontoxic and in no acute distress. Alert and oriented. Skin appears normal without diaphoresis or pallor. Heart regular. Lungs clear. Left upper extremity shows good range of motion. Good strength and sensation. Neurovascular intact distally. No laxity or deformity. Test Results: EKG, chest x-ray, labs pending Emergency Department Course and Treatment: I suspect this is myofascial pain. She is low risk for heart disease and her symptoms are very atypical. She was concerned and her coworkers were concerned that this could be an atypical cardiac presentation. I will check EKG, chest x-ray, and labs. EKG showed a left bundle branch block pattern. No sign of acute ischemia or infarction pattern. There is nothing to suggest that this is an acute ID type pattern. Chest x-ray normal. Labs normal. She has a heart score of 3, she received one-point because of her EKG and she received 2 points because of her age. Her symptoms are very unusual and atypical for ACS or angina. I do not believe she needs admission for that. I referred her to follow- up with her family doctor for outpatient follow-up. I suspect this may be just myofascial pain. She can take anti-inflammatories and rest the arm. Follow-up with primary care. Return right away for any new or worsening issues Treatment Plan: As above Disposition: Discharge Impression: 1. Left arm heaviness This note was generated with ByteShield dictation software. It may contain incorrect words, spelling, and punctuation that were not noted in review of the chart prior to signing ED Disposition - Plan for ED Patient: Disposition: Home or Assisted Living Chief Complaint: Upper Extremity Injury Instructions: ED Sprain Shoulder Referrals: Rosalinda Villareal MD [Primary Care Provider] - What to do if you have Problems For any increased pain, shortness of breath, bleeding, nausea or vomiting, chest pain, or any unexpected problems, contact your Primary Care Provider. Call [facility] ([phone]) or report to the closest Emergency Room. Call 911 if necessary. 10/30/18 1542 <Electronically signed by Yg Esteban MD> Date Yg Esteban MD Cosigner Signature (If Indicated): Date CC: Rosalinda Villareal MD DISCHARGE INSTRUCTION Observed: 10/30/2018 Status: F Source: [place] 3:42 PM [facility] REPOSITORY [facility] Medical Records Department [address] [place] [address] Discharge Instruction 10/30/18 1348 MR#: [id number] Acct: [id number] Name: TAYLOR LYONS Rep #: [id number] : 1955 63 From: Yg Esteban MD PCP: Rosalinda Villareal MD Status: DEP ER ED Disposition - Plan for ED Patient: Chief Complaint: Upper Extremity Injury Instructions: ED Sprain Shoulder Referrals: Rosalinda Villareal MD [Primary Care Provider] - What to do if you have Problems For any increased pain, shortness of breath, bleeding, nausea or vomiting, chest pain, or any unexpected problems, contact your Primary Care Provider. Call [facility] ([phone]) or report to the closest Emergency Room. Call 911 if necessary. 10/30/18 1542 <Electronically signed by Yg Esteban MD> Date Yg Esteban MD Cosigner Signature (If Indicated): Date CC: Rosalinda Villareal MD CBC W/DIFF, AUTOMATED Collected: 10/30/2018 Status: F Source: [place] 12:40 PM [facility] REPOSITORY TYPE CODE TESTS RESULT OUT OF RANGE REFERENCE UNITS LAB L100.1000 4.4-11.0 K/mm3 Normal WBC 7.4 LAB L100.1200 4.2-5.4 M/mm3 Low RBC 4.06 LAB L100.1300 12.0-15.0 g/dl Normal HGB 12.5 LAB L100.1400 37-47 % Low HCT 36.5 LAB L100.1500 81-99 fL Normal MCV 89.9 LAB L100.1600 27.0-32.0 pg Normal MCH 30.8 LAB L100.1700 32-36 g/gl Normal MCHC 34.2 LAB L100.1810 11.6-14.6 % Normal RDW CV 12.5 LAB L100.1820 35.1-43.9 fl Normal RDW SD 40.8 LAB L100.1900 150-450 K/mm3 Normal PLT 232 LAB L100.2000 6.2-12.0 fl Normal MPV 11.2 LAB L100.2100 47-70 % High NEUT% 75.3 LAB L100.2200 19-41 % Low LY% 15.9 LAB L100.2300 0-10 % Normal MONO% 7.0 LAB L100.2400 0-5 % Normal EO% 1.2 LAB L100.2500 0-1 % Normal BASO% 0.3 LAB L100.2550 0.0-0.9 % Normal IM GRAN % 0.300 Result Comment: IG% - Immature Granulocytes (promyelocytes, myelocytes and metamyelocytes) > 1% indicates that a LEFT SHIFT is Present. LAB L100.2620 2.0-7.7 X10 3/uL Normal Absolute Neut 5.6 LAB L100.2720 0.83-4.51 X10 3/ul Normal Absolute Lymph 1.18 Performed By: #### L100.0100 #### [facility] [address] [place], [address] BASIC METABOLIC Collected: 10/30/2018 Status: F Source: [place] PROFILE ([facility]) 12:40 PM [facility] REPOSITORY TYPE CODE TESTS RESULT OUT OF RANGE REFERENCE UNITS LAB L501.0100 74-106 mg/dL High GLU 112 Result Comment: Fasting Glucose result from 100 to 125 mg/dL suggests IMPAIRED HOMEOSTASIS per A.D.A. criteria. Please note revised GLUCOSE reference range effective 2017. LAB L501.1000 7-18 mg/dL Normal BUN 13 LAB L501.1100 0.55-1.02 mg/dL Normal CREAT,SERUM 0.60 Result Comment: The validity of the calculated GFR AND GFRAA in patients over 70 years has not been determined. Clinical correlation is essential. LAB L501.1110 >60 mL/min Normal EST GFR 107 Result Comment: Non- GFR Calc LAB L501.1115 >60 mL/min Normal EST GFR - AA 129 Result Comment: GFR Calc LAB L501.1255 ml/min Normal Estimated CRCL 77.33 LAB L501.1300 10-20 RATIO High BUN/CRE 21.7 LAB L501.2200 8.5-10 mg/dL Normal .1 CA 9.1 LAB L501.5300 136-14 mmol/L Low 5 NA 134 LAB L501.5600 3.5-5. mmol/L Normal 1 K 4.0 LAB L501.5900 98-107 mmol/L Normal CL 102 LAB L501.6100 21.0-3 mmol/L Normal 2.0 CO2 24.0 LAB L501.6200 5-15 Normal GAP 8 Performed By: #### L500.2500, L501.4010 #### [facility] [address] [facility] [place], [address] TROPONIN-I Collected: 10/30/2018 Status: F Source: [place] 12:40 PM [facility] REPOSITORY TYPE CODE TESTS RESULT OUT OF RANGE REFERENCE UNITS LAB L501.4010 <0.045 ng/mL Normal < 0.015 TROPONIN-I Result Comment: TROPONIN-I EXPECTED VALUES <0.045 Negative 0.045 - 0.590 Consistent with Cardiac Damage > OR = 0.600 Critical Value Not every elevated troponin is indicative of ID. These values should be used with clinical judgement in examining the patient's clinical picture for diagnosis. To establish a diagnosis of ID versus myocardial injury, there must be a demonstrated rise and/or fall in the troponin values, in addition to ischemic symptoms, EKG changes, new regional wall motion abnormality, and/or angiographical evidence. PLEASE NOTE: REFERENCE RANGES EDITED 18 Performed By: #### L500.2500, L501.4010 #### [facility] [address] [place], [address] CHEST 1 VIEW Observed: 10/30/2018 Status: F Source: MUSCLE SHOALS (PORTABLE) 12:26 PM [facility] REPOSITORY [facility] Imaging Services [address] [place] [address] Chest 1 View (Portable) MR#: [id number] Acct: [id number] Name: TAYLOR LYONS Rep #: [id number] : 1955 F 63 From: Cam Cloud MD PCP: Rosalinda Villareal MD Status: PRE ER Study: Chest 1 View (Portable) Date of Exam: 10/30/18 Exam# [id number] Ordering Dr: Yg Esteban MD STUDY: X-RAY CHEST REASON FOR EXAM: Female, 63 years old. Chest heaviness and left arm heaviness. TECHNIQUE: Single AP portable view of the chest. COMPARISON: None. FINDINGS: EKG electrodes are seen. The lungs are clear and expanded. There is no demonstrated pleural abnormality. Normal size heart. Normal mediastinum and sylvia. Normal visualized pulmonary arteries. Normal visualized aortic arch and descending thoracic aorta. There are mild degenerative changes of the visualized thoracic spine. Normal visualized ribs, clavicles, and shoulders. There is no demonstrated abnormality of the visualized soft tissue structures of the upper abdomen. RAD/Chest 1 View (Portable) IMPRESSION: Normal x-ray examination of the chest. Electronically Signed: Cam Cloud MD at 12:57 EST Tel [phone], Service support , CC: Yg Esteban MD; Rosalinda Villareal MD Corporate Receptionist: Signed GROUP A STREP BY Collected: 09/20/2018 Status: F Source: [place] PCR 12:41 PM [facility] REPOSITORY TYPE CODE TESTS RESULT OUT OF REFERENCE UNITS RANGE LAB GASSRC Throat Swab GAS Specimen Source LAB PCRGAS Negative for Group A Strep Group A PCR Streptococcus by PCR. Result Comment: This test was developed and its performance characteristics determined by [facility]'s Kody Pulliam [facility] [place] ([facility]). It has not been cleared or approved by the FDA. [facility] is regulated under CLIA as qualified to perform high-complexity testing. This test is used for clinical purposes. It should not be regarded as inv estigational or for research. Performed By: #### GASPCR #### [facility] [address] [id number] PROGRESS Observed: 09/20/2018 Status: COMPLETED Source: [place] 12:30 PM [facility] REPOSITORY HNO ID: [id number] Author: Betty Rojas Service: (none) Author Type: Physician Psychodramatist Type: Progress Notes Filed: 09/20/2018 5:45 PM Note Text: 09/20/2018 Patient presents with: Sore Throat SUBJECTIVE: This is a 63 year old that is here today for Complaint(s) of sore throat x 3 days. + cough at night. Mild rhinorrhea. + hoarseness. Denies fever/chills, SOB, wheezing, vomiting, diarrhea. . PAST MEDICAL HISTORY Diagnosis Date - Allergic rhinitis, cause unspecified testing 1977 inj's x 2-3 yrs. nearly asympt lately - History of periodontal disease ALLERGIES Environmental [Other]; Pet Dander [Other] MEDICATIONS No current outpatient prescriptions on file. No current facility-administered medications for this visit. 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 OBJECTIVE: BP 120/80 Pulse 70 Temp 36.4 ?C (97.5 ?F) (Left Tympanic) Resp 16 Wt 77.6 kg (171 lb) SpO2 98% BMI 31.27 kg/m? APPEARANCE alert, in no acute distress, well-hydrated, well nourished. EYES PERRLA, conjunctiva and sclera normal. EARS External ears normal, canals clear. TMs normal JUNIOR NOSE/SINUS Nares normal. Septum midline. Mucosa normal. No drainage or sinus tenderness. THROAT + posterior oropharyngeal erythema, no exudate. Uvula midline NECK Supple, no adenopathy; HEART RRR with normal S1 and S2 LUNG clear to auscultation, No wheezing, rhonchi, rales. ASSESSMENT/PLAN: 1. Sore throat - ICD9: 462, ICD10: J02.9 (primary diagnosis) - Rapid Strep negative in the office today and Throat culture pending - Discussed supportive care treatment with fluids, rest and analgesia. - The patient may also use warm salt water gargles, throat lozenges and/or OTC throat spray as needed and nasal saline gtts and suction prn. - The patient should follow up in 3-5 days if symptoms persist or worsen - Call back if drooling, increased temperature, symptoms of dehydration and/or still sick in one week - RAPID STREP TEST B/O - GROUP A STREPTOCOCCUS BY PCR 2. Viral URI with cough - ICD9: 465.9, ICD10: J06.9, B97.89 - Discussed viral etiology and rationale for treatment. - Symptomatic treatment with prn analgesia - Supportive care with fluids and rest - The patient may also use OTC cough and cold meds as needed, warm salt water gargles, throat lozenges and/or OTC throat spray as needed and nasal saline gtts and suction prn. - RAPID STREP TEST B/O - GROUP A STREPTOCOCCUS BY PCR The patient indicates understanding of these issues and agrees with the plan. Reviewed red flags and when to seek care sooner. Betty Rojas PA-C CNOV Observed: 09/20/2018 Status: COMPLETED Source: [place] 12:15 PM [facility] REPOSITORY Office Visit (UCWSTR) TAYLOR LYONS ([id number]) 1955 F Date Time Provider Department 09/20/18 12:15 PM BETTY ROJAS) UCWSTR During your visit today, we recorded the following information about you: Temperature Pulse Respiration Blood pressure 97.5 degrees 70/minute 16/minute 120/80 Weight 77.6 kg Betty Rojas PA-C 09/20/2018 5:45 PM Signed 09/20/2018 Patient presents with: Sore Throat SUBJECTIVE: This is a 63 year old that is here today for Complaint(s) of sore throat x 3 days. + cough at night. Mild rhinorrhea. + hoarseness. Denies fever/chills, SOB, wheezing, vomiting, diarrhea. . PAST MEDICAL HISTORY Diagnosis Date - Allergic rhinitis, cause unspecified testing 1977 inj's x 2-3 yrs. nearly asympt lately - History of periodontal disease ALLERGIES Environmental [Other]; Pet Dander [Other] MEDICATIONS No current outpatient prescriptions on file. No current facility-administered medications for this visit. 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 OBJECTIVE: BP 120/80 Pulse 70 Temp 36.4 ?C (97.5 ?F) (Left Tympanic) Resp 16 Wt 77.6 kg (171 lb) SpO2 98% BMI 31.27 kg/m? APPEARANCE alert, in no acute distress, well-hydrated, well nourished. EYES PERRLA, conjunctiva and sclera normal. EARS External ears normal, canals clear. TMs normal JUNIOR NOSE/SINUS Nares normal. Septum midline. Mucosa normal. No drainage or sinus tenderness. THROAT + posterior oropharyngeal erythema, no exudate. Uvula midline NECK Supple, no adenopathy; HEART RRR with normal S1 and S2 LUNG clear to auscultation, No wheezing, rhonchi, rales. ASSESSMENT/PLAN: 1. Sore throat - ICD9: 462, ICD10: J02.9 (primary diagnosis) - Rapid Strep negative in the office today and Throat culture pending - Discussed supportive care treatment with fluids, rest and analgesia. - The patient may also use warm salt water gargles, throat lozenges and/or OTC throat spray as needed and nasal saline gtts and suction prn. - The patient should follow up in 3-5 days if symptoms persist or worsen - Call back if drooling, increased temperature, symptoms of dehydration and/or still sick in one week - RAPID STREP TEST B/O - GROUP A STREPTOCOCCUS BY PCR 2. Viral URI with cough - ICD9: 465.9, ICD10: J06.9, B97.89 - Discussed viral etiology and rationale for treatment. - Symptomatic treatment with prn analgesia - Supportive care with fluids and rest - The patient may also use OTC cough and cold meds as needed, warm salt water gargles, throat lozenges and/or OTC throat spray as needed and nasal saline gtts and suction prn. - RAPID STREP TEST B/O - GROUP A STREPTOCOCCUS BY PCR The patient indicates understanding of these issues and agrees with the plan. Reviewed red flags and when to seek care sooner. Betty Rojas PA-C Referring Provider: SELF [200] Allergies As of Date: 09/20/2018 Noted Allergy Reaction environmental [Other] 12/08/2006 pet dander [Other] 12/08/2006 Date Reviewed: 09/20/2018 Reviewed by: Nat Carreno Ma - Fully Assessed Reason for Visit: Sore Throat [200] Primary Visit Diagnosis:Sore throat [J02.9] Other Visit Diagnosis:Viral URI with cough [J06.9, B97.89] Order(s):RAPID STREP TEST B/O [2454920] Order #: [id number] GROUP A STREPTOCOCCUS BY PCR [SQGASPCR] Order #: [id number] Problem List As Of Date 09/20/2018 Noted Resolved ALLERGIC RHINITIS NOS [J30.9] INVALID FOR* ABSENCE OF MENSTRUATION [N91.2] INVALID FOR*12/08/2006 OSTEOARTHROS NOS-UNSPEC [M19.90] INVALID FOR* FAMILY HX BREAST MALIG [Z80.3] INVALID FOR* More... ASYMPTOMATIC POSTMENOPAUSAL STATUS [Z78.0] INVALID FOR* CARBUNCLE OF TRUNK [L02.229] INVALID FOR* Obesity, Class II, BMI 35-39.9 [E66.9] INVALID FOR* Lichen sclerosus et atrophicus [L90.0] INVALID FOR* More... Thyroid nodule [E04.1] INVALID FOR* More... Encounter Status:Closed by BETTY ROJAS PA-C on 09/20/18 CNNURSE Observed: 09/14/2018 Status: COMPLETED Source: MATOS 8:10 AM [facility] REPOSITORY Nurse Visit (CORWST) TAYLOR LYONS ([id number]) 1955 F Date Time Provider Department 09/14/18 8:10 AM NURSE [facility] During your visit today, we recorded the following information about you: Elder Verdin LES 09/14/2018 8:00 AM Signed 63 year old female here for INACTIVATED INFLUENZA VACCINE. Season Patient is identified by name and date of : Yes [] CONTRAINDICATIONS color enhanced section Age less than 6 months? No Allergy to eggs, chicken, chicken feathers, or chicken dander? No Allergy to thimerosal (a preservative) or formaldehyde, gelatin? No History of severe reaction to any vaccine component or a previous dose of influenza vaccination? No History of Guillain-Justice Syndrome within 6 weeks after a previous influenza vaccine? No Patient is not moderately or severely ill? No Current temperature greater or equal to 100.4F? No History of Bone Marrow Transplant prior 6 months or solid organ transplant in the past 3 months ? No History of fainting after a prior injection or medical procedure? No- ? If patient has fainted in the past, the CDC recommends sitting or lying down for 15 minutes after the vaccination. [] VERIFICATION color enhanced section Was the answer Yes for any of the above contraindications? No contraindications present. Acceptable to proceed with vaccine. Patient/guardian agrees the above answers are true to the best of their knowledge? Yes Flu vaccine information sheet given? Yes [facility] for details of immunizations adminstered today. Patient age: [age] year old For The Flu Season 6-35 months old: Fluzone 0.25 ml - IM (Preservative Free) 3 years of age: Fluzone 0.5 ml - IM (Preservative Free) 3 years and older: Fluzone 0.5 ml- IM-(with Preservatives) 65+ years old: 2-49 years old Fluzone High-Dose 0.5 ml - IM (Preservative Free) FLUMIST- intranasal REMEMBER: If patient is less than 9 years of age and this is the first vaccine of Influenza to be received in any flu season, they should receive a second dose in one months time. Referring Provider: SELF [200] Allergies As of Date: 09/14/2018 Noted Allergy Reaction environmental [Other] 12/08/2006 pet dander [Other] 12/08/2006 Date Reviewed: 06/07/2017 Reviewed by: Maggie Mccollum (Rn) SARAH Lauren - Fully Assessed Reason for Visit: Imm/Inj [58] Cmt: Flu Vaccine Primary Visit Diagnosis:Need for vaccination [Z23] Order(s):INFLUENZA SEASONAL HIGH DOSE AGE 65+ [06246CFU] Order #: [id number] Problem List As Of Date 09/14/2018 Noted Resolved ALLERGIC RHINITIS NOS [J30.9] INVALID FOR* ABSENCE OF MENSTRUATION [N91.2] INVALID FOR*12/08/2006 OSTEOARTHROS NOS-UNSPEC [M19.90] INVALID FOR* FAMILY HX BREAST MALIG [Z80.3] INVALID FOR* More... ASYMPTOMATIC POSTMENOPAUSAL STATUS [Z78.0] INVALID FOR* CARBUNCLE OF TRUNK [L02.229] INVALID FOR* Obesity, Class II, BMI 35-39.9 [E66.9] INVALID FOR* Lichen sclerosus et atrophicus [L90.0] INVALID FOR* More... Thyroid nodule [E04.1] INVALID FOR* More... Encounter Status:Closed by ELDER VERDIN LPN on 09/14/18 PROGRESS Observed: 09/12/2018 Status: COMPLETED Source: [place] 3:35 PM [facility] REPOSITORY HNO ID: [id number] Author: Elder Verdin LPN Service: (none) Author Type: (none) Type: Progress Notes Filed: 09/14/2018 8:00 AM Note Text: 63 year old female here for INACTIVATED INFLUENZA VACCINE. 7029-6330 Season Patient is identified by name and date of : Yes [] CONTRAINDICATIONS color enhanced section Age less than 6 months? No Allergy to eggs, chicken, chicken feathers, or chicken dander? No Allergy to thimerosal (a preservative) or formaldehyde, gelatin? No History of severe reaction to any vaccine component or a previous dose of influenza vaccination? No History of Guillain-Justice Syndrome within 6 weeks after a previous influenza vaccine? No Patient is not moderately or severely ill? No Current temperature greater or equal to 100.4F? No History of Bone Marrow Transplant prior 6 months or solid organ transplant in the past 3 months ? No History of fainting after a prior injection or medical procedure? No- ? If patient has fainted in the past, the CDC recommends sitting or lying down for 15 minutes after the vaccination. [] VERIFICATION color enhanced section Was the answer Yes for any of the above contraindications? No contraindications present. Acceptable to proceed with vaccine. Patient/guardian agrees the above answers are true to the best of their knowledge? Yes Flu vaccine information sheet given? Yes See immunization activity in [facility] for details of immunizations adminstered today. Patient age: [age] year old For The Flu Season 6-35 months old: Fluzone 0.25 ml - IM (Preservative Free) 3 years of age: Fluzone 0.5 ml - IM (Preservative Free) 3 years and older: Fluzone 0.5 ml- IM-(with Preservatives) 65+ years old: 2-49 years old Fluzone High-Dose 0.5 ml - IM (Preservative Free) FLUMIST- intranasal REMEMBER: If patient is less than 9 years of age and this is the first vaccine of Influenza to be received in any flu season, they should receive a second dose in one months time. OBSOLETE Observed: 06/06/2018 Status: COMPLETED Source: [place] 12:00 AM CLINIC [facility] REPOSITORY Refill (AGPLAHWW) TAYLOR LYONS ([id number]) 1955 F Date Time Provider Department 06/06/18 KODY PIEDRAAHWFidel During your visit today, we recorded the following information about you: Allergies As of Date: 06/06/2018 Noted Allergy Reaction environmental [Other] 12/08/2006 pet dander [Other] 12/08/2006 Date Reviewed: 06/07/2017 Reviewed by: Maggie Mccollum (Rn) SARAH Lauren - Fully Assessed Reason for Visit: Plastic Surg Skin Care [1949] Reason For Visit History Recorded Primary Visit Diagnosis:Elective procedure for unacceptable cosmetic appearance [Z41.1] Order(s):OBAGI PRODUCT [2820799] Order #: [id number]: 1 Problem List As Of Date 06/06/2018 Noted Resolved ALLERGIC RHINITIS NOS [J30.9] INVALID FOR* ABSENCE OF MENSTRUATION [N91.2] INVALID FOR*12/08/2006 OSTEOARTHROS NOS-UNSPEC [M19.90] INVALID FOR* FAMILY HX BREAST MALIG [Z80.3] INVALID FOR* More... ASYMPTOMATIC POSTMENOPAUSAL STATUS [Z78.0] INVALID FOR* CARBUNCLE OF TRUNK [L02.229] INVALID FOR* Obesity, Class II, BMI 35-39.9 [E66.9] INVALID FOR* Lichen sclerosus et atrophicus [L90.0] INVALID FOR* More... Thyroid nodule [E04.1] INVALID FOR* More... Encounter Status:Closed by KODY PIEDRA MD on 06/06/18 SCREENING MAMM (CAD), Observed: 01/16/2018 Status: F Source: [place] BILAT 6:58 AM [facility] REPOSITORY [facility] Imaging Services [address] [place] [address] SCREENING MAMM (CAD), BILAT MR#: [id number] Acct: [id number] Name: TAYLOR LYONS Rep #: [id number] : 1955 F 62 From: Cam Cloud MD PCP: Rosalinda Villareal MD Status: REG CLI Study: SCREENING MAMM (CAD), BILAT Date of Exam: 01/16/18 Exam# [id number] Ordering Dr: Janice Wilson MD MAMMOGRAPHY - BILATERAL SCREENING REASON FOR EXAM: Female, 62 years old. Routine annual screening examination. PERTINENT HISTORY: Mother with breast cancer. TECHNIQUE: Digital bilateral breast caty (3D mammographic acquisition) in the CC and MLO projections. 2-D mediolateral oblique (MLO) and craniocaudad (CC) views of both breasts were obtained. CAD: Full Field Digital Mammography with Computer Added Detection was performed. COMPARISON: Comparison is made with prior study dated January 01, 2017 and May 18, 2015. FINDINGS: Breast Composition: The breasts are heterogeneously dense, which may obscure small masses. There are no dominant masses or suspicious calcifications. No other significant abnormalities are identified. There has been no significant change since the prior study. HPBI/SCREENING MAMM (CAD), BILAT IMPRESSION: Stable bilateral screening mammogram. Yearly follow-up mammogram recommended. (A) ASSESSMENT CATEGORY: BIRADS Category 1: Negative. A letter regarding these results will be sent to the patient by the facility within 30 days. Approximately 10% of breast cancers are not detected by mammography. A normal mammogram should not delay biopsy of a clinically suspicious abnormality. [id number] Electronically Signed: Cam Cloud MD at 8:26 EST Tel [phone], Service support , CC: Janice Wilson MD; Rosalinda Villareal MD Corporate Receptionist: Signed PAP I-G W/RFX HRHPV Collected: 12/10/2017 Status: F Source: [place] 4:30 PM [facility] REPOSITORY Order Comment: CYTOLOGY INFORMATION: - CLINICAL INFORMATION: - DATE LMP/MENOPAUSE: MENOPAUSE - COLLECTION VIAL: Thin Prep Vial - EXTERNAL AUDITOR SOURCE: CERVICAL/ENDOCERVICAL - COLLECTION TECHNIQUE: BRUSH/SPATULA Specimen Comment: [id number] Specimen Comment: No. of containers..01 ThinPrep Vial TYPE CODE TESTS RESULT OUT OF RANGE REFERENCE UNITS LAB L7400.0800 . Normal DIAGN Comment Result Comment: NEGATIVE FOR INTRAEPITHELIAL LESION AND MALIGNANCY. CELLULAR CHANGES ASSOCIATED WITH ATROPHY AND INFLAMMATION ARE PRESENT. THIS SPECIMEN WAS RESCREENED PART OF OUR INDUSTRIAL MAINTENANCE REPAIRER HELPER PROGRAM. LAB L7400.0900 . Normal ADEQ Comment Result Comment: Satisfactory for evaluation. Endocervical component may not be distinguished in cases of atrophy. LAB L7400.1400 . Normal PERFORM Comment Result Comment: Gabe Velásquez, Roof Promenade Tile Setter (ASCP) LAB L7400.1500 . Normal QC Comment REV Result Comment: Carmen Jurado, Roof Promen[employer] Tile Setter (ASCP) LAB L7400.2575 . Normal TEST METHOD Comment Result Comment: This liquid based ThinPrep(R) pap test was screened with the use of an image guided system. LAB L7400.2600 . Normal . COMM LAB L7400.2700 . Normal PAPSMR Comment Result Comment: The Pap smear is a screening test designed to aid in the detection of premalignant and malignant conditions of the uterine cervix. It is not a diagnostic procedure and should not be used as the sole means of detecting cervical cancer. Both false-positive and false-negative reports do occur. LAB L7400.2800 . Normal HPV RFLX Comment Result Comment: The HPV DNA reflex criteria were not met with this specimen result therefore, no HPV testing was performed. Performed at: [address] [id number] Plate Painter Apprentice: Maria Isabel Bedolla MD, Phone: [phone] Performed By: #### L9663.1400 #### [facility] (refer to report for specific site) refer to report for address and phone number ALLERGIES ALLERGIES DATE TYPE / CODE NAME / CODE REACTION SEVERITY SOURCE 10/30/2018 Drug No Known Unknown [place] Allergy/540676117(S Allergies/F [facility]) [id number][facility] 12/08/2006 Miscellaneous OTHER [facility] Allergy/549042272(S Other [place] NOMED [facility]) Repository NG/826076574(SNOMED OTHER [facility] Repository ENCOUNTERS ENCOUNTERS ADMIT/DISCHARGE ACCOUNT NUMBER ADMITTING ENCOUNTER LOCATION SOURCE CLASS 11/27/2018/11/28/19 [id number] Ambulatory [address] [place] Repository 11/14/2018/11/14/19 [id number] Ambulatory [address] [place] Repository 11/14/2018/11/14/19 [id number] Ambulatory [address] [place] Repository 11/14/2018/11/14/19 [id number] Ambulatory [address] [place] Repository 11/08/2018/11/08/20 [id number] Ambulatory [address] [place] Repository 11/07/2018/11/07/20 [id number] Ambulatory [address] [place] Repository 11/07/2018/11/08/20 [id number] Ambulatory [address] [place] Repository 10/30/2018/10/30/20 [id number] Emergency [address] ding:ED Repository 09/20/2018/09/23/20 [id number] Ambulatory [address] [place] Repository 09/14/2018/09/16/20 [id number] Ambulatory [address] [place] Repository 01/16/2018 [id number] Ambulatory [facility] ding:BI Repository 01/14/2018 [id number] Ambulatory [facility] Other [place] Repository 01/14/2018 [id number] Ambulatory [facility] MEDICAL Repository CENTERBuildi ng:AGPLAHWW 12/10/2017 [id number] Ambulatory [facility] ding:LABSPEC Repository PAYERS PAYERS ENCOUNTER GUARANTOR PAYER SUBSCRIBER SOURCE 10/30/2018 CAIN [id number] Insurance:MEDICAL SNYDERDOB: [facility] [id number] Number: Repository [address]Gpw: 330 [id number] [phone] (HP) Date:[id number] [address] [address]WT: 10/30/2018 Secondary NOT GIVENUNK Sabrina Insurance:SELF PAY [facility] Number: Effective Repository Date:2018-10-30 01/16/2018 Cain R Primary TAYLOR K Williams [id number] Insurance:MEDICAL SNYDERDOB: [facility] [id number] Number: Repository [id number]: 330 [id number] [phone] (HP) Date:[id number] [address] [address]BZ: 01/16/2018 Secondary NOT GIVENUNK Sabrina Insurance:SELF PAY [facility] Number: Effective Repository Date:2017-12-11 12/10/2017 Cain R Primary TAYLOR Saida Williams [id number] Insurance:MEDICAL SNYDERDOB: [facility] [id number] Number: Repository [id number]: [phone] [id number] [phone] (HP) Date:[id number] [address] [place] [address]WQ: 12/10/2017 Secondary NOT GIVENUNK [place] Insurance:SELF PAY [facility] Number: Effective Repository Date:2017-12-10
--- OUTSIDE RECORDS SUMMARY | 2019-01-31 18:37 | XMS RPT_ITS ---
:1955 Author Organization [employer] Address [address] [place] [address] Phone Care Team Providers Name Role Phone Harrison ZALDIVAR, Archie García Unavailable Reason for Visit Reason For Visit Description Start Date New/Est - 1st visit with physician Preliminary reason for visit data, not yet signed by the author as of right knee pain Preliminary reason for visit data, not yet signed by the author as of Chief Complaint Chief Complaint Description Start Date right knee pain Preliminary chief complaint data, not yet signed by the author as of Instructions Instruction Description Start Date Patient advised to follow-up with Primary Care Physician for BMI management. 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 Conditions or Problems Problem Problem Onset Status Entry Provider Comment Standard Annotate Name Code Date Date Description Loose body 90023831 Active Archie García Loose body in in knee, (SNOMED CT) 12/25 12/25 Harrison ZALDIVAR knee right knee Internal M23.91 Active Archie García Unspecified derangement (ICD-10-CM) 12/25 12/25 Harrison ZALDIVAR internal of right derangement of knee right knee Other 27262861 Active Archie S Derangement of meniscus (SNOMED CT) 12/25 12/25 Harrison ZALDIVAR lateral derangement meniscus s, other lateral meniscus, right knee Primary 29621381716 Active Archie S Osteoarthritis osteoarthri 9100 12/25 12/25 Harrison ZALDIVAR of right knee tis of (SNOMED CT) joint right knee Primary 17222566 Active Janice Giles Osteoarthrosis osteoarthri (SNOMED CT) 05/09 06/01 DiBartolomeo of the tis of PA-C carpometacarpal first joint of the carpometaca thumb rpal joint of left hand Trigger 83004637 Active Janice Giles Snapping thumb thumb of (SNOMED CT) 05/09 06/01 DiBartolomeo syndrome left hand PA-C Allergies, Adverse Reactions, Alerts Observed no known allergies at Social History No information available. Vital Signs Date Name Value Unit Description BMI (Body Mass 30.22 kg/m2 Body Mass Index Index) [Ratio] Preliminary vital sign data, not yet signed by the author as of BP Diastolic 77 mm[Hg] blood pressure, diastolic Preliminary vital sign data, not yet signed by the author as of BP Systolic 120 mm[Hg] blood pressure, systolic Preliminary vital sign data, not yet signed by the author as of Heart Rate 62 /min pulse rate E&M Preliminary vital sign data, not yet signed by the author as of Height 63 [in_us] height E&M Preliminary vital sign data, not yet signed by the author as of Height 160 cm height in centimeters E&M Preliminary vital sign data, not yet signed by the author as of Weight Measured 170 [lb_av] weight E&M Preliminary vital sign data, not yet signed by the author as of Weight Measured 77 kg weight in kilograms E&M Preliminary vital sign data, not yet signed by the author as of Results Date Name Value Unit Range Flag Description Office Visit: New/Est - 1st visit with physician, Rm: 15 MEDS REVIEW Done Documentation of current medications (procedure) Preliminary observation data, not yet signed by the author as of Preliminary observation data, not yet signed by the author as of Clinical Summary: [facility]MS[facility] OOP account number Procedures Code Procedure Name Date Entry Date CPT-30154 Major Joint or Bursa injection/aspiration - Right CPT-J0702 Injection - betamethasone acetate 3 mg and betamethasone sodium phosphate 3 mg G8730 Pain assessment documented as positive - follow-up documented G8427 Current medications documented 1036F Tobacco screening was negative - non user G8417 BMI documented as above normal parameters - follow-up documented G8783 Blood pressure within normal parameters - no follow-up required 1006F Osteoarthritis symptoms and functional status assessed [facility]-[id number] Patient Encounter Medications Administered No information available. Immunizations No information available. Advance Directives There may be information available, but it has not been provided by the sender. Assessments There may be information available, but it has not been provided by the sender. Review of Systems There may be information available, but it has not been provided by the sender. Family History There may be information available, but it has not been provided by the sender. History of Past Illness There may be information available, but it has not been provided by the sender. History of Present Illness There may be information available, but it has not been provided by the sender.
== END 2018-10-30 14:05 | disposition home or self-care (01) ==
LOC: ED 13:10
PROVIDERS: Emergency Provider Emergency Medicine; Family Provider Family Medicine; PCP Family Medicine
DX: R29.898 Other symptoms and signs involving the musculoskeletal system (principal); M79.602 Pain in left arm; I44.7 Left bundle-branch block, unspecified
CPT/HCPCS: 71045; 80048; 84484; 85025; 93005; 99284; A4216

== ENCOUNTER → 2019-05-01 | Outpatient (CLI) | payer OTHER, SELFPAY ==
--- NOTE | 2019-05-01 07:05 | BI_ITS ---
MAMMOGRAPHY - BILATERAL SCREENING REASON FOR EXAM: Female, 63 years old. Routine annual screening examination. PERTINENT HISTORY: Mother with breast cancer. Aunt with breast cancer. TECHNIQUE: Digital bilateral breast jayne (3D mammographic acquisition) in the CC and MLO projections. 2-D mediolateral oblique (MLO) and craniocaudad (CC) views of both breasts were obtained. CAD: Full Field Digital Mammography with Computer Added Detection was performed. COMPARISON: Comparison is made with prior study dated January 16, 2018 and January 01, 2017. FINDINGS: Breast Composition: The breasts are heterogeneously dense, which may obscure small masses. There are no dominant masses or suspicious calcifications. Stable small bilateral axillary lymph nodes. No other significant abnormalities are identified. There has been no significant change since the prior study. BI/SCREEN MAMM (CAD) W/JAYNE BILAT IMPRESSION: Stable bilateral screening mammogram. Yearly follow-up mammogram recommended. (A) ASSESSMENT CATEGORY: BIRADS Category 2: Benign. A letter regarding these results will be sent to the patient by the facility within 30 days. Approximately 10% of breast cancers are not detected by mammography. A normal mammogram should not delay biopsy of a clinically suspicious abnormality. [id number] Electronically Signed: Cam Cloud, at 8:45 EDT , Service support ,
== END | disposition home or self-care (01) ==
LOC: OPBI 07:04
PROVIDERS: Family Provider Family Medicine; PCP Family Medicine; Referring Provider Obstetrics & Gynecology; Visit Provider Obstetrics & Gynecology
DX: Z12.31 Encounter for screening mammogram for malignant neoplasm of breast (principal)
CPT/HCPCS: 77063; 77067

== ENCOUNTER → 2020-05-24 07:08 | Outpatient (CLI) | payer MEDICARE, SELFPAY ==
--- NOTE | 2020-05-24 07:12 | BI_ITS ---
MAMMOGRAPHY - BILATERAL SCREENING REASON FOR EXAM: Female, 64 years old. Routine annual screening examination. PERTINENT HISTORY: Mother with breast cancer. Aunt with breast cancer. TECHNIQUE: Digital bilateral breast jayne (3D mammographic acquisition) in the CC and MLO projections. 2-D mediolateral oblique (MLO) and craniocaudad (CC) views of both breasts were obtained. CAD: Full Field Digital Mammography with Computer Added Detection was performed. COMPARISON: Comparison is made with prior examination dated May 01, 2019 and January 16, 2018. FINDINGS: Breast Composition: The breasts are heterogeneously dense, which may obscure small masses. There are no dominant masses or suspicious calcifications. No other significant abnormalities are identified. There has been no significant change since the prior study. BI/SCREEN MAMM (CAD) W/JAYNE BILAT IMPRESSION: Stable bilateral screening mammogram. Yearly follow-up mammogram recommended. (A) ASSESSMENT CATEGORY: BIRADS Category 1: Negative. A letter regarding these results will be sent to the patient by the facility within 30 days. Approximately 10% of breast cancers are not detected by mammography. A normal mammogram should not delay biopsy of a clinically suspicious abnormality. [id number] Electronically Signed: Cam Cloud, at 9:56 EDT , Service support ,
== END ==
PROVIDERS: PCP Family Medicine; Referring Provider Student in an Organized Health Care Education/Training Program; Visit Provider Student in an Organized Health Care Education/Training Program
DX: Z12.31 Encounter for screening mammogram for malignant neoplasm of breast (principal)
CPT/HCPCS: 77063; 77067

== ENCOUNTER → 2021-07-29 11:50 | Outpatient (CLI) | payer MEDICARE, SELFPAY ==
--- NOTE | 2021-07-29 11:52 | BI_ITS ---
MAMMOGRAPHY - BILATERAL SCREENING REASON FOR EXAM: Female, 65 years old. Routine annual screening examination. PERTINENT HISTORY: Mother with breast cancer. Aunt with breast cancer. TECHNIQUE: Digital bilateral breast jayne (3D mammographic acquisition) in the CC and MLO projections. 2-D mediolateral oblique (MLO) and craniocaudad (CC) views of both breasts were obtained. CAD: Full Field Digital Mammography with Computer Added Detection was performed. COMPARISON: Comparison is made with prior study 05/24/2020 and 05/01/2019. FINDINGS: Breast Composition: The breasts are heterogeneously dense, which may obscure small masses. There are no dominant masses or suspicious calcifications. No other significant abnormalities are identified. There has been no significant change since the prior study. BI/SCRN MAMM (CAD)W/JAYNE BILAT IMPRESSION: Stable bilateral screening mammogram. Yearly follow-up mammogram recommended. (A) ASSESSMENT CATEGORY: BIRADS Category 1: Negative. A letter regarding these results will be sent to the patient by the facility within 30 days. Approximately 10% of breast cancers are not detected by mammography. A normal mammogram should not delay biopsy of a clinically suspicious abnormality. [id number] Electronically Signed: Cam Cloud MD at 12:39 EDT , Service support ,
== END ==
PROVIDERS: PCP Family Medicine; Referring Provider Family Medicine; Visit Provider Family Medicine
DX: Z12.31 Encounter for screening mammogram for malignant neoplasm of breast (principal)
CPT/HCPCS: 77063; 77067

== ENCOUNTER → 2022-06-27 | Outpatient (CLI) | payer OTHER, SELFPAY ==
--- NOTE | 2022-06-27 12:57 | RAD_ITS ---
INDICATION: R/O COMPRESSION DEFORMITY EXAMINATION/TECHNIQUE: X-RAY - XR Spine Thoracic 2 Views COMPARISON: Chest x-ray obtained 10/30/2018 FINDINGS: Mild levoscoliosis of the thoracolumbar spine is visualized. No evidence of anomalous vertebral bodies. No evidence of compression deformity of the thoracic vertebral bodies. Degenerative endplate changes visualized with anterior osteophyte formation. No evidence of lytic or sclerotic bone lesions is seen. Limited evaluation of the abdomen and lung cazares is unremarkable. RAD/Thoracic Spine 2 Views IMPRESSION: Degenerative changes, no evidence of thoracic spinal fracture or spondylolisthesis. Electronically Signed: Esequiel Cabrera MD at 16:10 EDT ,
== END | disposition home or self-care (01) ==
LOC: RAD 12:44
PROVIDERS: PCP Family Medicine; Referring Provider Chiropractor; Visit Provider Chiropractor
DX: M99.02 Segmental and somatic dysfunction of thoracic region (principal); M45.A7 Non-radiographic axial spondyloarthritis of lumbosacral region; M99.05 Segmental and somatic dysfunction of pelvic region; M99.03 Segmental and somatic dysfunction of lumbar region; M99.01 Segmental and somatic dysfunction of cervical region; S23.41XA Sprain of ribs, initial encounter; X58.XXXA Exposure to other specified factors, initial encounter
CPT/HCPCS: 72070